=== PATIENT | female | born 1980 | race Hispanic/Latino ===

== ENCOUNTER 2019-06-06 21:13 | Emergency (ER) | payer SELFPAY ==
[2019-06-07] MEDS ORDERED: FAMOTIDINE 20 MG TAB PO ONE (00:52)
[2019-06-07] MEDS ORDERED: ONDANSETRON 4 MG ODT TAB PO ONE (00:52)
[2019-06-07] MEDS ORDERED: DICYCLOMINE 20 MG TAB PO ONE (00:53)
[2019-06-07 02:21] LABS: Bacteria,Urine 1+ /HPF (Negative); Bilirubin,Urine NEG (Negative); Blood,Urine NEG (Negative); Color,Urine Yellow (Yellow); Hyaline Casts,Urine 1 /LPF; Mucus,Urine FEW /HPF; Protein,Urine <15 mg/dL mg/dL (Negative); Urobilinogen,Urine < 2.0 mg/dL (<2.0)
[2019-06-07 02:22] LABS: HCG Qualitative,Urine Negative (Negative)
--- NOTE | 2019-06-07 02:31 | Emergency Department Report ---
ED N/V/D HPI - General Chief complaint: Nausea/Vomiting/Diarrhea Stated complaint: DIARREAH/ABD PAIN Source: patient Mode of arrival: Ambulatory Limitations: No Limitations - History of Present Illness Initial comments: Patient is a 38-year-old white female with no past medical history who presents to the ED with component of acute onset persistent intermittent nausea and diarr hea with epigastric pain for the last 4 days, stating that all family members have had similar symptoms after consuming the same kind of food. Follow days ago. Patient denies vomiting, dizziness, syncope, chest pain, shortness of breath, fever, chills, sore throat, dysuria, urinary frequency and urgency, vaginal bleeding, vaginal discharge, cough, hematochezia or hematemesis. MD complaint: nausea, diarrhea -: Sudden, days(s) (4) Description of Vomiting: food contents, watery Description of Diarrhea: water Associated Abdominal Pain: Yes (EPIGASTRIC) Location: epigastric Radiation: none Severity: moderate Pain Scale: 6 Quality: cramping, aching, dull Consistency: intermittent Improves with: none Worsens with: eating, vomiting Context: possible food poisoning, sick contacts Associated Symptoms: denies other symptoms, myalgias, loss of appetite, malaise, nausea/vomiting. denies: chest pain, cough, diaphoresis, fever/chills, headaches, rash, dysuria, shortness of breath, syncope, weakness - Related Data Previous Rx's Medication Instructions Recorded Last Taken Type Dicyclomine [Bentyl] 20 mg PO Q6H PRN #24 tablet 06/07/19 Unknown Rx Diphenoxylate/Atropine [Lomotil] 1 - 2 tab PO Q4H PRN #15 tablet 06/07/19 Unknown Rx Famotidine [Pepcid] 20 mg PO Q12H #30 tablet 06/07/19 Unknown Rx Ondansetron [Zofran Odt] 4 mg PO Q6HR PRN #20 tab.rapdis 06/07/19 Unknown Rx Allergies Allergy/AdvReac Type Severity Reaction Status Date / Time ibuprofen [From Motrin] Allergy Hives Verified 06/06/19 22:06 ED Review of Systems ROS: Stated complaint: DIARREAH/ABD PAIN Other details as noted in HPI Constitutional: denies: chills, fever Eyes: denies: eye pain, eye discharge, vision change ENT: denies: ear pain, throat pain Respiratory: denies: cough, shortness of breath, wheezing Cardiovascular: denies: chest pain, palpitations Endocrine: no symptoms reported Gastrointestinal: abdominal pain, nausea, diarrhea Genitourinary: denies: urgency, dysuria, discharge Musculoskeletal: denies: back pain, joint swelling, arthralgia Skin: denies: rash, lesions Neurological: denies: headache, weakness, paresthesias Psychiatric: denies: anxiety, depression Hematological/Lymphatic: denies: easy bleeding, easy bruising ED Past Medical Hx - Past Medical History Previous Medical History?: Yes Hx Hypertension: Yes Additional medical history: Obesity - Surgical History Past Surgical History?: No - Social History Smoking Status: Never Smoker Substance Use Type: None - Medications Home Medications: Home Medications Medication Instructions Recorded Confirmed Last Taken Type Dicyclomine [Bentyl] 20 mg PO Q6H PRN #24 tablet 06/07/19 Unknown Rx Diphenoxylate/Atropine [Lomotil] 1 - 2 tab PO Q4H PRN #15 tablet 06/07/19 Unknown Rx Famotidine [Pepcid] 20 mg PO Q12H #30 tablet 06/07/19 Unknown Rx Ondansetron [Zofran Odt] 4 mg PO Q6HR PRN #20 tab.rapdis 06/07/19 Unknown Rx ED Physical Exam - General Limitations: No Limitations General appearance: alert, in no apparent distress - Head Head exam: Present: atraumatic, normocephalic, normal inspection - Eye Eye exam: Present: normal appearance, PERRL, EOMI - ENT ENT exam: Present: normal exam, normal orophraynx, mucous membranes moist, TM's normal bilaterally, normal external ear exam - Neck Neck exam: Present: normal inspection, full ROM - Respiratory Respiratory exam: Present: normal lung sounds bilaterally. Absent: respiratory distress, wheezes, rales, rhonchi, chest wall tenderness, accessory muscle use - Cardiovascular Cardiovascular Exam: Present: normal rhythm, tachycardia, normal heart sounds. Absent: systolic murmur, diastolic murmur, rubs, gallop - GI/Abdominal GI/Abdominal exam: Present: soft, normal bowel sounds. Absent: tenderness, guarding, hyperactive bowel sounds, hypoactive bowel sounds - Extremities Exam Extremities exam: Present: normal inspection, full ROM, normal capillary refill - Back Exam Back exam: Present: normal inspection, full ROM. Absent: tenderness, CVA tenderness (L), muscle spasm, vertebral tenderness - Neurological Exam Neurological exam: Present: alert, oriented X3, CN II-XII intact, normal gait, reflexes normal - Psychiatric Psychiatric exam: Present: normal affect, normal mood - Skin Skin exam: Present: warm, dry, intact, normal color. Absent: rash ED Course Vital Signs 06/06/19 22:00 Temperature 98.3 F Pulse Rate 109 H Respiratory 18 Rate Blood Pressure 183/96 O2 Sat by Pulse 95 Oximetry ED Medical Decision Making - Medical Decision Making This is a 38-year-old female who presented to the ED with persistent nausea, diarrhea and abdominal pain for the last 4 days. Patient had stated that all 3 children all had similar symptoms. In the ED, patient is alert and oriented 3 and is not in distress, tachycardic in triage but afebrile. Urinalysis shows no acute urine nitrite infection or abnormalities. Patient was treated for nausea and vomiting and also given antacids and pain medication in the ED. On reevaluation, patient past oral fluid challenge in the ED. The patient was discharged home on medications and advised to maintain a clear liquid diet for 12-24 hours, follow-up with her primary care physician in 5-7 days for reevaluation, or return to the ED immediately if symptoms get worse. - Differential Diagnosis viral gastroenteritis; dehydration; GERD; UTI Critical care attestation.: If time is entered above; I have spent that time in minutes in the direct care of this critically ill patient, excluding procedure time. ED Disposition Clinical Impression: Viral gastroenteritis, Nausea, vomiting and diarrhea Disposition: TO HOME OR SELFCARE Is pt being admited?: No Does the pt Need Aspirin: No Condition: Stable Instructions: Gastroenteritis (ED), Acute Nausea and Vomiting (ED), Abdominal Pain (ED) Additional Instructions: Maintain a clear liquid diet for 12-24 hours, take medication with food, drink plenty of fluids and follow-up with your primary care physician and 5-7 days for reevaluation. Return to the ED immediately if symptoms get worse. Prescriptions: Dicyclomine [Bentyl] 20 mg PO Q6H PRN #24 tablet PRN Reason: Pain , Severe (7-10) Diphenoxylate/Atropine [Lomotil] 1 - 2 tab PO Q4H PRN #15 tablet PRN Reason: Diarrhea Famotidine [Pepcid] 20 mg PO Q12H #30 tablet Ondansetron [Zofran Odt] 4 mg PO Q6HR PRN #20 tab.rapdis PRN Reason: Nausea Referrals: [facility] [Outside] - 3-5 Days Forms: Work/School Release Form(ED) Time of Disposition: 02:30 Print Language: DANISH
[2019-06-07 03:39] VITALS: BP 120/90
== END 2019-06-07 03:39 | disposition home or self-care (01) ==
LOC: ED 21:13
DX: K21.9 Gastro-esophageal reflux disease without esophagitis (principal)
CPT/HCPCS: 81001; 81025; Q0162